=== PATIENT | female | born 1990 | race Caucasian/White ===

== ENCOUNTER 2016-11-07 21:51 | Emergency (ER) | payer OTHER ==
[~2016-11-07] VITALS: Ht 170.2 cm; Wt 112.0 kg
[~2016-11-07 21:51] MED LIST: AMOXICILLIN500 MG PO; AMOXICILLIN875 MG PO; BENADRYL25 MG PO; CEFDINIR300 MG PO; CLEAR EYES REDN30 M1 BOTH EYES; DOCUSATE SODIU100 MG PO; FERROUS SULFAT325 MG PO; FIORICET,ESG1 TABLET PO; FLOMAX0.4 MG PO; IBUPROFEN800 MG PO; KEFLEX500 MG PO; KENALOG,ARISTOC15 G2 TP; LEVAQUIN500 MG PO; MACROBID100 MG PO; Motrin PO; NIZORAL 2% CREA15 GM TP; PERCOCET 5/31 TABLET PO; PRENATAL TABLE1 EAC3 PO; PRENATAL VITAM1 EAC7 PO; PRENATAL1 EACH PO; PYRIDIUM200 MG PO; TYLENOL REGULA325 MG PO; TYLENOL WITH C1 EACH PO; ULTRAM50 MG PO; ZOFRAN ODT4 MG PO; ZOFRAN ODT8 MG PO; ZOFRAN4 MG PO
[2016-11-07 22:58] LABS: ADD MIUA? YES; BILIRUBIN NEGATIVE; BLOOD NEGATIVE; COLOR YELLOW ((YELLOW)); GLUCOSE (STRIP) NEGATIVE; KETONES 5; LEUKOCYTES NEGATIVE; NITRITE NEGATIVE; PROTEIN (STRIP) 30; SPECIFIC GRAVITY 1.029 (1.000-1.030); UROBILINOGEN 0.2 MG/DL (0.2-1.0)
[2016-11-07 23:03] LABS: BACTERIA NONE SEEN /HPF; EPITHELIAL CELLS RARE /HPF; MUCUS TRACE /LPF; RED BLOOD CELLS 0-5 /HPF (0-5); UCUL ADDED? NO; WHITE BLOOD CELLS 0-5 /HPF (0-5)
[2016-11-07 23:14] VITALS: BP 106/48
[2016-11-10 13:46] LABS: CHLAMYDIA TRACHOMATIS NEGATIVE; NEISSERIA GONORRHOEAE NEGATIVE
== END 2016-11-07 23:15 | disposition home or self-care (01) ==
LOC: EME 21:51
PROVIDERS: Emergency Medicine
DX: A64 Unspecified sexually transmitted disease (principal)
CPT/HCPCS: 81003; 87086; 87491; 87591; 99281; 99284

== ENCOUNTER 2017-03-21 12:00 | Emergency (ER) | payer OTHER ==
[~2017-03-21] VITALS: Ht 170.2 cm; Wt 106.1 kg
[2017-03-21] MEDS ORDERED: TESSALON PERLE100 MG PO (13:41)
[2017-03-21 14:16] VITALS: BP 118/68
== END 2017-03-21 14:17 | disposition home or self-care (01) ==
LOC: EME 12:00
DX: J06.9 Acute upper respiratory infection, unspecified (principal); J45.909 Unspecified asthma, uncomplicated; F17.200 Nicotine dependence, unspecified, uncomplicated; R19.7 Diarrhea, unspecified; Z87.442 Personal history of urinary calculi
CPT/HCPCS: 71020; 93005; 94640; 99281; 99284

== ENCOUNTER 2017-04-16 17:33 | Emergency (ER) | payer OTHER ==
[~2017-04-16] VITALS: Ht 167.6 cm; Wt 108.0 kg
[~2017-04-16 17:33] MED LIST changes: +TESSALON PERLE100 MG PO
[2017-04-16] MEDS ORDERED: NORCO 5/3251 TABLET PO (19:45)
[2017-04-16] MEDS ORDERED: PEN-VEE K,VEET500 MG PO (19:45)
[2017-04-16 19:57] VITALS: BP 114/81
== END 2017-04-16 19:57 | disposition home or self-care (01) ==
LOC: EME 17:33
DX: K08.89 Other specified disorders of teeth and supporting structures (principal); K03.81 Cracked tooth; F17.200 Nicotine dependence, unspecified, uncomplicated
CPT/HCPCS: 99281; 99283

== ENCOUNTER 2017-09-20 15:58 | Emergency (ER) | payer OTHER ==
[~2017-09-20] VITALS: Ht 170.2 cm; Wt 101.4 kg
[~2017-09-20 15:58] MED LIST changes: +NORCO 5/3251 TABLET PO; +PEN-VEE K,VEET500 MG PO
[2017-09-20 17:17] LABS: HEMOGLOBIN 13.3 G/DL (11.9-15.5); MCHC 32.4 G/DL (30.0-36.0); MCV 86.3 FL (83-99); PLATELET COUNT 251 K/uL (156-360); RBC DIS.WIDTH-SD 44.3 % (39-53); RED BLOOD COUNT 4.75 M/uL (3.80-5.20); WHITE BLOOD COUNT 7.9 K/uL (4.1-10.2)
[2017-09-20 17:27] LABS: CHLORIDE 109 mEq/L (99-109); POTASSIUM 4.1 mEq/L (3.7-5.4); SODIUM 143 mEq/L (136-147)
[2017-09-20 17:29] LABS: GLUCOSE 100 mg/dL (70-99)
[2017-09-20 17:33] LABS: CREATININE 0.8 mg/dL (0.6-1.3); GFR ESTIMATE (CALCULATED) > 59 mL/min/
[2017-09-20 17:34] LABS: UREA NITROGEN (BUN) 10 mg/dL (9-23)
[2017-09-20 17:50] LABS: APPEARANCE SL.HAZY ((CLEAR)); BILIRUBIN NEGATIVE; BLOOD MODERATE; COLOR YELLOW ((YELLOW)); GLUCOSE (STRIP) NEGATIVE; KETONES NEGATIVE; LEUKOCYTES NEGATIVE; NITRITE NEGATIVE; PROTEIN (STRIP) NEGATIVE; SPECIFIC GRAVITY 1.021 (1.000-1.030)
[2017-09-20 18:03] LABS: BACTERIA RARE /HPF; EPITHELIAL CELLS RARE /HPF; MUCUS 2+ /LPF; RED BLOOD CELLS TNTC /HPF (0-5); UCUL ADDED? YES; WHITE BLOOD CELLS 0-5 /HPF (0-5)
[2017-09-20 18:29] LABS: QUANTITATIVE HCG < 4.0 MIU/ML
[2017-09-20] MEDS ORDERED: NAPROSYN500 MG PO (19:50)
[2017-09-20] MEDS ORDERED: ZOFRAN ODT4 MG PO (19:50)
[2017-09-20 20:23] VITALS: BP 130/70
== END 2017-09-20 20:29 | disposition home or self-care (01) ==
LOC: EME 15:58
DX: N20.0 Calculus of kidney (principal); J45.909 Unspecified asthma, uncomplicated; F41.9 Anxiety disorder, unspecified; Z87.442 Personal history of urinary calculi; F17.200 Nicotine dependence, unspecified, uncomplicated
CPT/HCPCS: 74176; 80048; 81003; 84702; 85027; 87086; 99281; 99284; J1885